=== PATIENT | female | born 1975 | race African-American/Black ===

== ENCOUNTER 2024-04-24 17:14 | Emergency (ER) | payer MEDICAID ==
[~2024-04-24] VITALS: Ht 160 cm; Wt 55.0 kg
[2024-04-24 17:37] VITALS: BP 153/90; PULSE 96; RESP 16; TEMP 98.6; O2SAT 99
[2024-04-24] MEDS: LIDOCAINE HCL/PF 1% 10 MG/ML 5ML VIAL INFIL ONE (18:55)
[2024-04-24] MEDS: BACITRACIN ZINC OINT UDPKT TOP ONE (18:55)
[2024-04-24] MEDS ORDERED: BO1 TP (19:50)
[2024-04-24] MEDS ORDERED: NAPR-681 PO (19:50)
== END 2024-04-24 20:07 | disposition left against medical advice (07) ==
LOC: ER 17:14
DX: S61.213A Laceration without foreign body of left middle finger without damage to nail, initial encounter (principal); S50.811A Abrasion of right forearm, initial encounter; E11.9 Type 2 diabetes mellitus without complications; I10 Essential (primary) hypertension; W45.8XXA Other foreign body or object entering through skin, initial encounter; Y93.89 Activity, other specified; Y92.89 Other specified places as the place of occurrence of the external cause; Y99.8 Other external cause status
CPT/HCPCS: 73140; 99283; J3490; Z7610 ×2

== ENCOUNTER 2025-03-16 18:50 | Emergency (ER) | payer MEDICARE, MEDICAID ==
[~2025-03-16] VITALS: Ht 152.4 cm; Wt 55.0 kg
[~2025-03-16 18:50] MED LIST: BO1 TP; NAPR-681 PO
[2025-03-16 19:01] VITALS: O2SAT 99
[2025-03-16] MEDS: ACETAMINOPHEN 500MG TABLET PO ONE (22:10)
[2025-03-16] MEDS: DEXAMETHASONE 10 MG/ML VIAL PO ONE (22:39)
[2025-03-16] MEDS ORDERED: NAPR-1176 MT (23:00)
[2025-03-16] MEDS ORDERED: DIPH28.33 TP (23:00)
[2025-03-16 23:12] VITALS: BP 128/85; PULSE 71; RESP 18; TEMP 36.9; O2SAT 99
== END 2025-03-16 23:14 | disposition home or self-care (01) ==
LOC: ER 18:50
DX: G44.309 Post-traumatic headache, unspecified, not intractable (principal); I10 Essential (primary) hypertension; Z79.1 Long term (current) use of non-steroidal anti-inflammatories (NSAID); Z90.710 Acquired absence of both cervix and uterus; W19.XXXA Unspecified fall, initial encounter; Y93.01 Activity, walking, marching and hiking; Y92.89 Other specified places as the place of occurrence of the external cause; Y99.8 Other external cause status
CPT/HCPCS: 99283; J1100